=== PATIENT | male | born 1995 | race Hispanic/Latino ===

== ENCOUNTER 2018-11-12 16:16 | Emergency (ER) | payer SELFPAY ==
[2018-11-12] MEDS ORDERED: PHENYLEPHRINE 0.5% NOSE 15ML NAS ONE ×2 (17:30)
--- NOTE | 2018-11-12 19:27 | ER ---
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 Transition of care: patient was not received from another setting of care. Onset of symptoms was November 12, 2018. Risk Assessment: Do you want to hurt yourself or someone else? Patient reports no desire to harm self or others. Initial Sepsis Screen: Does the patient meet any 2 criteria? No. Patient's initial sepsis screen is negative. Does the patient have a suspected source of infection? No. Patient's initial sepsis screen is negative. Care prior to arrival: None. 16:28 Method Of Arrival: EMS: [facility] 16:28 Acuity: BRUCE 4 ph Historical: - Allergies: 16:34 No Known Allergies; ph - Home Meds: 16:34 None [Active]; ph - PMHx: 16:34 None; ph - PSHx: 16:34 None; ph - Immunization history:: Adult Immunizations up to date. - Social history:: Smoking status: Patient/guardian denies using tobacco. - Ebola Screening: : No symptoms or risks identified at this time. Screenin:45 Abuse screen: Denies threats or abuse. Denies injuries from another. Nutritional ph screening: No deficits noted. Tuberculosis screening: No symptoms or risk factors identified. Fall Risk None identified. Assessment: 16:45 General: Appears in no apparent distress. comfortable, slender, well developed, ph Behavior is calm, cooperative, appropriate for age. Pain: Complains of pain in right temporal area. Neuro: Level of Consciousness is awake, alert, obeys commands, Oriented to person, place, time, situation, Reports headache in right frontal area, Denies weakness blurred vision dizziness. Cardiovascular: Denies chest pain, Capillary refill < 3 seconds in bilateral fingers Patient's skin is warm and dry. Respiratory: Airway is patent Respiratory effort is even, unlabored. GI: Patient currently denies nausea. EENT: Nares with bleeding noted bilaterally. Derm: Skin is intact, is healthy with good turgor, Skin is pink, warm \T\ dry. 18:06 Reassessment: Patient appears in no apparent distress at this time. Patient and/or ph family updated on plan of care and expected duration. Pain level reassessed. Patient is alert, oriented x 3, equal unlabored respirations, skin warm/dry/pink. Bleeding to ilana nares noted to have decreased, pt d/c home w/ friend. Vital Signs: 16:32 BP 128 / 73; Pulse 59; Resp 18; Temp 98.7; Pulse Ox 100% on R/A; Weight 74.84 kg; ph Height 5 ft. 10 in. (177.80 cm); 18:08 BP 117 / 71; Pulse 45; Resp 16; Temp 97.8; Pulse Ox 99% on R/A; ph 16:32 Body Mass Index 23.67 (74.84 kg, 177.80 cm) ph ED Course: 16:26 Patient arrived in ED. ph 16:27 Cassandra Sanchez, RN is Primary Nurse. ph 16:32 Triage completed. ph 16:35 Arm band placed on Patient placed in an exam room, on a stretcher, on pulse oximetry. ph 16:37 Caleb Oates NP is PHCP. pm1 16:37 Chava Newman MD is Attending Physician. pm1 16:45 Patient has correct armband on for positive identification. Bed in low position. Call ph light in reach. Side rails up X 1. Pulse ox on. NIBP on. Warm blanket given. 18:07 No provider procedures requiring assistance completed. Patient admitted, IV remains in ph place. Administered Medications: 17:40 Drug: Angel-Synephrine [place] 0.5 % 2 sprays Route: Intranasal; Site: both nares; ph 18:08 Follow up: Response: No adverse reaction ph Outcome: 17:46 Discharge ordered by . pm1 18:07 Discharged to home ambulatory, with friend. ph 18:07 Condition: improved 18:07 Discharge instructions given to patient, Instructed on discharge instructions, follow up and referral plans. Demonstrated understanding of instructions, follow-up care. 18:09 Patient left the ED. ph Signatures: Cassandra Sanchez RN RN ph Caleb Oates, [employer] SUPERVISOR pm1
--- NOTE | 2018-11-12 19:28 | EDPHYS ---
Physician Documentation [facility] Name: Geovany Curtis Age: 23 yrs Sex: Male : 1995 Arrival Date: 11/12/2018 Time: 16:26 Bed 20 Private MD: ED Physician Chava Newman HPI: 11/12 17:40 This 23 yrs old Male presents to ER via EMS with complaints of Nose bleed. pm1 17:40 The patient presents with a nose bleed, causative factors include: unknown, and the pm1 bleeding is not resolved and continues in ER. Onset: The symptoms/episode began/occurred 3 hour(s) ago. Modifying factors: The symptoms are alleviated by nothing. the symptoms are aggravated by nothing. The patient has experienced similar episodes in the past, a few times. The patient has not recently seen a physician. Patient outside performing training in the head. Patient presents with nose bleed from both nares. No trauma. Patient's blood pressure with elevated at site with onset of nose bleed. Historical: - Allergies: 16:34 No Known Allergies; ph - Home Meds: 16:34 None [Active]; ph - PMHx: 16:34 None; ph - PSHx: 16:34 None; ph - Immunization history:: Adult Immunizations up to date. - Social history:: Smoking status: Patient/guardian denies using tobacco. - Ebola Screening: : No symptoms or risks identified at this time. ROS: 17:40 Constitutional: Negative for fever, chills, and weight loss, Eyes: Negative for injury, pm1 pain, redness, and discharge. 17:40 Neck: Negative for injury, pain, and swelling, Cardiovascular: Negative for chest pain, palpitations, and edema, Respiratory: Negative for shortness of breath, cough, wheezing, and pleuritic chest pain, Abdomen/GI: Negative for abdominal pain, nausea, vomiting, diarrhea, and constipation, Back: Negative for injury and pain, MS/Extremity: Negative for injury and deformity, Skin: Negative for injury, rash, and discoloration. 17:40 ENT: Positive for nose bleed, Negative for ear pain. 17:40 Neuro: Positive for headache, of the right temporal area, Negative for numbness, tingling, weakness. Exam: 17:40 Constitutional: This is a well developed, well nourished patient who is awake, alert, pm1 and in no acute distress. Head/Face: Normocephalic, atraumatic. Eyes: Pupils equal round and reactive to light, extra-ocular motions intact. Lids and lashes normal. Conjunctiva and sclera are non-icteric and not injected. Cornea within normal limits. Periorbital areas with no swelling, redness, or edema. 17:40 Neck: Trachea midline, no thyromegaly or masses palpated, and no cervical lymphadenopathy. Supple, full range of motion without nuchal rigidity, or vertebral point tenderness. No Meningismus. Chest/axilla: Normal chest wall appearance and motion. Nontender with no deformity. No lesions are appreciated. Cardiovascular: Regular rate and rhythm with a normal S1 and S2. No gallops, murmurs, or rubs. Normal PMI, no JVD. No pulse deficits. Respiratory: Lungs have equal breath sounds bilaterally, clear to auscultation and percussion. No rales, rhonchi or wheezes noted. No increased work of breathing, no retractions or nasal flaring. Abdomen/GI: Soft, non-tender, with normal bowel sounds. No distension or tympany. No guarding or rebound. No evidence of tenderness throughout. Back: No spinal tenderness. No costovertebral tenderness. Full range of motion. Skin: Warm, dry with normal turgor. Normal color with no rashes, no lesions, and no evidence of cellulitis. MS/ Extremity: Pulses equal, no cyanosis. Neurovascular intact. Full, normal range of motion. 17:40 ENT: External ear(s): are unremarkable, Ear canal(s): are normal, TM's: are normal, Nose: bleeding, is noted from both nares, and is minimal, no septal hematoma is appreciated, Mouth: is normal. 17:40 Neuro: Orientation: is normal, Motor: is normal, moves all fours. Vital Signs: 16:32 BP 128 / 73; Pulse 59; Resp 18; Temp 98.7; Pulse Ox 100% on R/A; Weight 74.84 kg; ph Height 5 ft. 10 in. (177.80 cm); 18:08 BP 117 / 71; Pulse 45; Resp 16; Temp 97.8; Pulse Ox 99% on R/A; ph 16:32 Body Mass Index 23.67 (74.84 kg, 177.80 cm) ph MDM: 16:47 Patient medically screened. pm1 17:45 Data reviewed: vital signs. Data interpreted: Pulse oximetry: on room air is 100 %. pm1 Interpretation: normal. Counseling: I had a detailed discussion with the patient and/or guardian regarding: the historical points, exam findings, and any diagnostic results supporting the discharge/admit diagnosis, the need for outpatient follow up, for definitive care, an ENT specialist, to return to the emergency department if symptoms worsen or persist or if there are any questions or concerns that arise at home. Administered Medications: 17:40 Drug: Angel-Synephrine [place] 0.5 % 2 sprays Route: Intranasal; Site: both nares; ph 18:08 Follow up: Response: No adverse reaction ph Disposition: 11/13 13:51 Co-signature as Attending Physician, Chava Newman MD I agree with the assessment and kdr plan of care. Disposition: 11/12/18 17:46 Discharged to Home. Impression: Epistaxis. - Condition is Stable. - Discharge Instructions: Nosebleed, Adult. - Medication Reconciliation Form, Thank You Letter, Antibiotic Education, Prescription Opioid Use form. - Follow up: Emergency Department; When: As needed; Reason: Worsening of condition. Follow up: Private Physician; When: 2 - 3 days; Reason: Recheck today's complaints, Continuance of care, Re-evaluation by your physician. - Problem is new. - Symptoms have improved. Signatures: Chava Newman MD MD [facility] Cassandra Sanchez RN RN Caleb Oates NP OPTOMETRIC TECHNOLOGIST pm1 Corrections: (The following items were deleted from the chart) 11/12 18:09 17:46 11/12/2018 17:46 Discharged to Home. Impression: Epistaxis. Condition is Stable. ph Forms are Medication Reconciliation Form, Thank You Letter, Antibiotic Education, Prescription Opioid Use. Follow up: Emergency Department; When: As needed; Reason: Worsening of condition. Follow up: Private Physician; When: 2 - 3 days; Reason: Recheck today's complaints, Continuance of care, Re-evaluation by your physician. Problem is new. Symptoms have improved. pm1
== END 2018-11-12 18:09 | disposition home or self-care (01) ==
LOC: ER 16:16
DX: R04.0 Epistaxis (principal)
CPT/HCPCS: 99283